=== PATIENT | male | born 1995 | race Caucasian/White ===

== ENCOUNTER 2016-11-18 00:14 | Emergency (ER) | payer MEDICAID ==
[~2016-11-18] VITALS: Ht 177.8 cm; Wt 127.0 kg
--- NOTE | 2016-11-18 00:51 | Emergency Room Report ---
History of Present Illness Time Seen by MD Wallace Presenting Problem in Triage Pt arrived:Wheelchair Presenting Problem:TESTICULAR PAIN AND DIFFICULTY VOIDING. 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 N Clinical Suspician of Infection? N Mental Status: 1 - Regular (Normal Baseline) Sepsis Risk:Low Sepsis Risk Have you (or family members/close friends) recently traveled outside the [place]? N If Yes, where/when: Have you had exposure to infectious disease within the past month? N TB? Other? Specify: Source patient, RN notes reviewed, family, old records Exam Limitations no limitations Comment 1 day hx of bilat testicular pain with diff voiding but no abd or flank pain and no d/c or hematuria and no penile lesions or d/c and no trauma Cardiac Chest Pain Chest pain indicative of cardiac No Timing/Duration this evening Severity moderate ALLERGIES Coded Allergies: codeine (Severe, I-ITCHING 11/18/16) Penicillins (11/18/16) Home Medications Reported Medications Clonazepam (Clonazepam 1MG) 1 MG PO BIDP PRN ANXIETY #90 DEXTROAMPHETAMINE/AMPHETAMINE (Dextroamp-Amphet ER 30 MG Cap) 30 MG PO DAILY #30 Gabapentin (Gabapentin 800MG) 800 MG PO Q8 #90 IBUPROFEN MICRONIZED (IBUPROFEN 600MG) 800 MG PO Q8HP PRN PAIN History Medical History General CAD? No Angina: No MD: No Hypertension? No Hyperlipidemia? No CHF? No DVT? No PE? No COPD? No Asthma? No Anemia? No GERD? No Gastric ulcers? No GI Bleed? No Hernia? No Thyroid Problems? No Hypothyroidism? No CVA? No Seizures? No Diabetes? No Renal Insuffiency? No End Stage Renal Disease? No UTI? No Stones? No BPH? No GB Disease: No Nephritic Syndrome? No Asplenia? No Hepatitis? No Sickle Cell Disease? No Arthritis? No Migraines? No Cataracts? No Glaucoma? No MRSA? No HIV? No TB? No Anxiety? No Depression? No Cancer? No Immunization Hx DT/Tetanus Unknown Surgical Hx Previous Surgery?N Social History Smoking Hx Smoker: Current Every Day Smoker Tobacco: Yes Type Cigarettes Drugs none Review of Systems All Other Systems Reviewed and Negative Constitutional denies fever Eyes denies drainage ENT denies: ear discharge, epistaxis, throat pain. Respiratory denies cough, denies shortness of breath, denies wheezing Cardiovascular denies chest pain, denies palpitations, denies syncope Gastrointestinal denies abdominal pain, denies diarrhea, denies vomiting Genitourinary see HPI, scrotal/testicular pain. denies: dysuria, frequency, hesitancy, hematuria, genital lesions. Musculoskeletal denies back pain, denies joint pain, denies neck pain Skin denies rash Psychiatric/Neurological denies seizure Physical Exam Vital Signs Vital Signs Date Time Temp Pulse Resp B/P Pulse O2 O2 Flow FiO2 Ox Delivery Rate 11/18 0033 98.7 56 20 149/70 96 - WBC >12,000 or <4,000 or 10% bands? 2 or more SIRS Criteria Met? B/P:149/70 MAP:96 Creatinine >2.0? UA output<0.5ml/kg/hr for 2 hrs? Platelet count >100,000? Lactate >2.0mmol/1? INR >1.2 or PTT > than 60 sec? Evidence of Organ Dysfunction? Provider documented clinical suspician of infection? N Sepsis Criteria Count: 1 Sepsis Risk: Low Sepsis Risk General Appearance no apparent distress Eye Exam - bilateral eye PERRL, bilateral eye EOMI Ear, Nose, Throat normal ENT inspection Neck supple Respiratory Status No: respiratory distress. 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 No Results/Orders Orders Procedure Date/time Status URINALYSIS/COMPLETE 11/18 0032 Active Departure Departure Time of Disposition 0045 Disposition DC Home or Self Care(routine) Clinical Impression Primary Impression: Epididymitis Condition STABLE Referrals LYDIA ZAMAN (Family) Patient Instructions DI for Epididymitis Additional Instructions use meds and see pcp or urologist if sx persist Discharge Counseling Counseled pt/family regarding diagnosis, medications/RX, follow up needs Prescriptions Current Visit Scripts Minocycline Hcl (Minocycline 100MG. Capsule) 100 MG PO BID #14 CAP ED Critical Care Critical Care No at 0059
[2016-11-18 01:17] VITALS: BP 149/70
== END 2016-11-18 01:19 | disposition home or self-care (01) ==
LOC: ER 00:14
DX: N45.1 Epididymitis (principal); Z79.899 Other long term (current) drug therapy; F17.210 Nicotine dependence, cigarettes, uncomplicated